=== PATIENT | male | born 1960 ===

== ENCOUNTER 2022-07-25 15:52 | Outpatient (CLI) | payer BC | END 2022-07-25 15:53 | disposition home or self-care (01) | LOC: CSHLAB 15:52 | PROVIDERS: ATTEND Surgery | DX: Z01.818 Encounter for other preprocedural examination (principal); Z20.822 Contact with and (suspected) exposure to COVID-19; D17.1 Benign lipomatous neoplasm of skin and subcutaneous tissue of trunk | CPT/HCPCS: 87811; 93005; 93010 ==